=== PATIENT | female | born 1995 | race Caucasian/White ===

== ENCOUNTER 2020-02-06 09:36 | Emergency (ER) | payer OTHER, SELFPAY ==
[2020-02-06 09:37] VITALS: BP 147/86; PULSE 100; RESP 18; TEMP 36.6; O2SAT 100; BMI 30.9
--- NOTE | 2020-02-06 09:45 | ED.VIS.GEN ---
History of Present Illness Chief Complaint: Chest Other Informant: Patient Onset: Today Current Severity: Mild Maximum Severity: Mild Narrative: Patient presents with pain in her lungs. Patient states that in the night last night she choked while drinking some Kirby-Aid. She now has pain in both lungs and is concerned she may have aspirated. No significant coughing. No fever. Patient denies history of lung disease. Past Medical History - Allergies and Home Meds Allergies/Adverse Reactions: Allergies No Known Allergies Allergy (Verified 02/06/20 09:39) Primary Care Physician: Igor Solis,Out of [Primary Care Provider] - Past Medical History: None Review of Systems General: Denies: Chills, Fever Eyes: Denies: Visual changes - bilaterally ENT: Denies: Bilateral ear pain Cardiovascular: Reports: Chest pain Respiratory: Denies: Dyspnea, Cough, Sputum Gastrointestinal: Denies: Abdominal pain, Nausea, Vomiting, Diarrhea Genitourinary: Denies: Dysuria Musculoskeletal: Denies: Extremity Pain Skin: Denies: Rash Hematologic: Denies: Easy bruising, Easy bleeding Allergy: Denies: Uticaria Physical Exam Vital Signs/Narrative: Vital Signs Temp Pulse Resp BP Pulse Ox 02/06/20 09:37 97.9 F 100 18 147/86 H 100 Inital Vital Signs reviewed: Yes General: Well nourished, Well developed Head: Normocephalic ENT: Moist mucous membranes Neck: Supple Cardiovascular: Regular rate, Regular rhythm Respiratory: No distress, CTA bilaterally Abdomen: Soft, Nontender Extremities: Nontender Skin: Normal color Neurological: Alert, Oriented x3 Psychological: Normal affect Diagnostic/Tx/Re-eval Chest X-Ray - ED: 2 View, Read by ED Physician, Normal, Heart, Lungs, Mediastinum - Medical Decision Making Chest x-ray per my interpretation reveals no evidence of infiltrate. Patient will be given an IM injection of Kenalog to help with inflammation in her lungs. If she develops fever or cough she is to return for repeat x-ray. She voices understanding and agreement. ED Disposition - Plan for ED Patient: Disposition: Home or Assisted Living Diagnosis: Pneumonitis Instructions: ED Dyspnea Referrals: Igor SolisOut of [Primary Care Provider] - 1 Week if not improving Additional Instructions: As discussed, return for development of cough or fever.
--- NOTE | 2020-02-06 09:54 | RAD_ITS ---
STUDY: X-RAY CHEST REASON FOR EXAM: Female, 24 years old. pt states she aspirated while taking a drink last night. chest pain today. TECHNIQUE: Frontal and lateral views of the chest. COMPARISON: None. FINDINGS: The lungs are clear and expanded. There is no demonstrated pleural abnormality. Normal size heart. Normal mediastinum and tyree. Normal visualized pulmonary arteries. Normal visualized aortic arch and descending thoracic aorta. Normal visualized thoracic spine. Normal visualized ribs, clavicles, and shoulders. There is no demonstrated abnormality of the visualized soft tissue structures of the upper abdomen. RAD/Chest PA and Lateral IMPRESSION: Normal x-ray examination of the chest. Electronically Signed: Teodora Rodriguez, at 10:10 EST Tel , Service support ,
[2020-02-06] MEDS: Triamcinolone Acetonide 40 MG/ML Vial IM (10:36)
[2020-02-06 10:38] VITALS: PULSE 94; RESP 16; O2SAT 98
== END 2020-02-06 10:50 | disposition home or self-care (01) ==
PROVIDERS: Emergency Provider Emergency Medicine
DX: J18.9 Pneumonia, unspecified organism (principal)
CPT/HCPCS: 71046; 96372; 99282

== ENCOUNTER 2023-08-10 22:35 | Outpatient (CLI) | payer MEDICAID, SELFPAY ==
[2023-08-10 23:37] VITALS: BMI 37.1
[2023-08-11 00:31] VITALS: BP 140/89; PULSE 71
[2023-08-11 09:14] VITALS: PULSE 118; O2SAT 87
[2023-08-11 09:15] VITALS: PULSE 109; O2SAT 100
[2023-08-11 09:17] VITALS: BP 175/91; PULSE 109
[2023-08-11 09:20] VITALS: PULSE 103; O2SAT 100
--- NOTE | 2023-08-12 09:08 | NURSING ---
08/11/23: wrong pt documentation from [id number]. DemetriaRN
--- NOTE | 2023-08-12 16:05 | OB.TRI.NOTE ---
HPI - General General Date of Service: 08/10/23 HPI Narrative MOE ABBOTT, is a 28 F who presents c/o LE swelling and elevated BP at home. Pt reports no ALLRED, visual changes, epigastric pain. PFSH PFSH Home Medications ?Medication ?Instructions ?Recorded ?Last Taken ?Type etonogestrel 68 mg subdermal 1 implant subdermal ONCE 06/19/20 Unknown History implant (Nexplanon) Allergy/AdvReac Type Severity Reaction Status Date / Time No Known Allergies Allergy Verified 08/11/23 01:44 Surgical History (Updated 06/19/20 @ 12:22 by Didi Franco) [place] teeth extracted Social History (Updated 06/19/20 @ 12:23 by Didi Franco) Smoking Status: Former smoker alcohol intake: never Physical Exam Narrative per nursing staff- exam unremarkable- no clonus. NST FHR Rate Baby A Baseline: 130s Variability:: Moderate Accelerations:: 15 x 15 Decelerations:: None NST Reactive:: Yes FHR Category:: Category I Uterine Activity:: occasional Assessment & Plan (1) 34 weeks gestation of : (2) Swelling of lower extremity during in third trimester: PLAN: Plan @ 34+ weeks gestation with LE swelling and Elevated BP at home- 1) BP on L&D stable and patient asymptomatic - plan to dc home with follow up this week in office 2) NST reactive- well being established
== END 2023-08-11 00:38 | disposition home or self-care (01) ==
LOC: WPOUT 22:39 → WP 22:43
PROVIDERS: Referring Provider Obstetrics & Gynecology; Visit Provider Obstetrics & Gynecology
DX: O99.891 Other specified diseases and conditions complicating pregnancy (principal); M79.89 Other specified soft tissue disorders; Z3A.34 34 weeks gestation of pregnancy
CPT/HCPCS: 59025; 59050; 99221; G0378